=== PATIENT | female | born 2000 | race Caucasian/White ===

== ENCOUNTER 2024-10-21 08:28 | Outpatient (OUT) | payer OTHER, SELFPAY ==
--- OUTSIDE RECORDS SUMMARY | 2024-10-16 08:00 | XMS_ITS | Encounter Summary ---
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 Monthly or less 04/22/2023 Q2: How many drinks containi ng alcohol do you have on a typical day when you are drinking? 1 or 2 04/22/2023 Q3: How often do you have si x or more drinks on one occasion? Never 04/22/2023 Estimated Date of Delivery Comme nts Yes 05/10/2025 Based on last me nstrual period of 08/03/2024 Sex and Gender Information Value Date Recorded Sex Assigned at Not on file Legal Sex Female 7:09 PM EDT Gender Identity Not on file Sexual Orientation Not on file documented as of this encounter Plan of Treatment Upcoming Encounters Date Type Department Care Team (Late st Contact Info) Description 10/27/2024 11:45 AM EDT Initial [facility] [address] [place] [address] Timothy Fair MD [address] [place] [address] 11/03/2024 10:30 AM EDT Office Visit [facility] [address] [place] [address] Timothy Fair MD [address] [place] [address] 03/16/2025 1:00 PM EDT Office Visit [facility] [address] [place] [address] Timothy Fair MD [address] [place] [address] Pending Results Name Type Priority Associated Diagnoses Date /Time OB transvaginal Imaging Routine 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
--- OUTSIDE RECORDS SUMMARY | 2024-10-21 08:40 | XMS_ITS | Encounter Summary ---
Author Organization [facility] Address [address] [place] [address] Phone Care Team Providers Care Managing Supervisor Name Role Phone Mayuri Coronel MD Primary Care Provider Encounter Details Date Type Department Care Team (Late st Contact Info) Description 06/21/2020 Orders Only [facility] [address] [place] [address] Conversion, Onbase Social History Tobacco Use Types Packs/Day Years Used Date Smoking Tobacco: Never Assessed Comments Unknown Sex and Gender Information Value Date Recorded Sex Assigned at Not on file Legal Sex Female 3:19 PM EST Gender Identity Not on file Sexual Orientation Not on file documented as of this encounter Plan of Treatment Scheduled Orders Name Type Priority Associated Diagnoses Orde r Schedule OUTSIDE LAB SCAN Lab Ordered: 06/21/2020 documented as of this encounter Visit Diagnoses Not on filedocumented in this encounter Care Teams Managing Supervisor Relationship Specialty Start Date End Date Mayuri Coronel MD [address] [place] [address] PCP - General 08/07/18 documented as of this encounter
--- OUTSIDE RECORDS SUMMARY | 2024-10-21 08:40 | XMS_ITS | Encounter Summary ---
Author Organization [facility] Address [address] [place] [address] Care Team Providers Care Airplane Woodworker Name Role Phone Mayuri Coronel MD Primary Care Provider [phone] Encounter Details Date Type Department Care Team (Latest Contact Info) Description 10/16/2024 Travel Social History Tobacco Use Types Packs/Day Years [...] EDT Initial [facility] [address] [place] [address] Timothy Fair MD [address] [place] [address] 11/03/2024 10:30 AM EDT Office Visit [facility] [address] [place] [address] Timothy Fair MD [address] [place] [address] 03/16/2025 1:00 PM EDT Office Visit [facility] [address] [place] [address] Timothy Fair MD [address] [facility] [address] [place] [address] documented as of this encounter Goals Goal Patient Goal Type Associated Problems Recent Progress Patient-Stated? Author Reminders Care Plan OB Reminders No Peyton Naranjo MA documented as of this encounter Visit Diagnoses Not on filedocumented in this encounter Additional Health Concerns Active Problems Noted Date Diagnosed Date OB Reminders 09/08/2024 documented as of this encounter Care Teams Airplane Woodworker Relationship Specialty Start Date End Date Mayuri Coronel MD [address] [facility] [place] [address] PCP - General Family Medicine 02/26/23 documented as of this encounter
--- OUTSIDE RECORDS SUMMARY | 2024-10-21 08:40 | XMS_ITS | Encounter Summary ---
Author Organization [facility] Address [address] [place] [address] Care Team Providers Care Editorial Specialist Name Role Phone Mayuri Coronel MD Primary Care Provider [phone] Encounter Details Date Type Department Care Team (Late st Contact Info) Description 02/26/2023 Abstract [facility] [address] [facility] [address] [place] [address] Timothy Fair MD [address] [facility] [address] [place] [address] Social History Tobacco Use Types Packs/Day Years Used Date Smoking Tobacco: Never Smokeless Tobacco: Never Tobacco Cessation:Counseling Given: Not Answered Alcohol Use Standard Drinks/Week Comments Yes 2 (1 standard drink = 0.6 oz pur e alcohol) caffeine 1-2 cups/day; tea Comments No Sex and Gender Information Value Date Recorded Sex Assigned at Not on file Legal Sex Female 7:09 PM EDT Gender Identity Not on file Sexual Orientation Not on file documented as of this encounter Plan of Treatment Upcoming Encounters Date Type Department Care Team (Late st Contact Info) Description 10/27/2024 11:45 AM EDT Initial [facility] [address] [facility] [address] [place] [address] Timothy Fair MD [address] [facility] [address] [place] [address] 11/03/2024 10:30 AM EDT Office Visit [facility] [address] [place] [address] Timothy Fair MD [address] [facility] [address] [place] [address] 03/16/2025 1:00 PM EDT Office Visit [facility] [address] [facility] [address] [place] [address] Timothy Fair MD [address] [facility] [address] [place] [address] documented as of this encounter Visit Diagnoses Not on filedocumented in this encounter Care Teams Editorial Specialist Relationship Specialty Start Date End Date Mayuri Coronel MD [address] [facility] [place] [address] PCP - General Family Medicine 02/26/23 documented as of this encounter
--- OUTSIDE RECORDS SUMMARY | 2024-10-21 08:40 | XMS_ITS | Encounter Summary ---
Author Organization [facility] Address [address] [place] [address] Care Team Providers Care Financial Reporting Accountant Name Role Phone Mayuri Coronel MD Primary Care Provider [phone] Encounter Details Date Type Department Care Team (Late st Contact Info) Description 10/16/2024 Telephone [facility] [address] [place] [address] Michelle Zimmerman MA [address] [place] [address] Social History Tobacco Use Types Packs/Day Years [...] on file documented as of this encounter Miscellaneous Notes * Telephone Encounter - Michelle Zimmerman MA - 10/16/2024 4:09 PM EDT Per [facility] schedule suction D&C for missed at [facility] if available, if not [facility]. And send order for Rhogam to [facility]. Called [facility], scheduled surgery for 10/21/24 @ 7 a.m. Rhogam orders faxed. Called and spoke with the patient, advised her of surgery date and time, be there this day at 6:15 a.m., nothing to eat or drink after midnight the night before surgery, she will need a driver/guide available once release from [facility], and no aspirin 7 days prior to surgery. Patient was also advised he she will need a 2 week PO appointment. Scheduled for 11/03/24 @ 10:30 a.m. Precert sent. documented in this encounter Plan of Treatment Upcoming Encounters Date Type Department Care Team (Late st Contact Info) Description 10/27/2024 11:45 AM EDT Initial [facility] [address] [place] [address] Timothy Fair MD [address] [place] [address] 11/03/2024 10:30 AM EDT Office Visit [facility] [address] [place] [address] Timothy Fair MD [address] [place] [address] 03/16/2025 1:00 PM EDT Office Visit [facility] [address] [place] [address] Timothy Fair MD [address] [place] [address] Scheduled Orders Name Type Priority Associated Diagnoses Orde r Schedule RHOGAM WORKUP ([facility]) Lab Routine Rh negative status during in first trimester Encounter for blood typing Blood typing encounter Expected: 10/16/2024 (Approximate), Expires: 10/16/2025 documented as of this encounter Goals Goal Patient Goal Type Associated Problems Recent Progress Patient-Stated? Author Reminders Care Plan OB Reminders Peyton Luciano MA documented as of this encounter Visit Diagnoses Diagnosis Rh negative status during in first trimester Encounter for blood typing Blood typing encounter Encounter for blood typing documented in this encounter Additional Health Concerns Active Problems Noted Date Diagnosed Date OB Reminders 09/08/2024 documented as of this encounter Care Teams Financial Reporting Accountant Relationship Specialty Start Date End Date Mayuri Coronel MD [address] [place] [address] PCP - General Family Medicine 02/26/23 documented as of this encounter
--- OUTSIDE RECORDS SUMMARY | 2024-10-21 08:40 | XMS_ITS | Encounter Summary ---
Author Organization [facility] Address [address] [place] [address] Care Team Providers Care Plaster Model And Mold Maker Name Role Phone Mayuri Coronel MD Primary Care Provider [phone] Reason for Visit * Reason Comments Med Refill Encounter Details Date Type Department Care Team (Late st Contact Info) Description 03/09/2023 Refill [facility] [address] [place] [address] Timothy Fair MD [address] [facility] [address] [place] [address] Oral contraceptive pill surveillance Social History Tobacco Use Types Packs/Day Years Used Date Smoking Tobacco: Never Smokeless Tobacco: Never Alcohol Use Standard Drinks/Week Comments Yes 2 (1 standard drink = 0.6 oz pur e alcohol) Comments No Sex and Gender Information Value [...] OB [address] [place] [address] Timothy Fair MD [address] [facility] [address] [place] [address] 11/03/2024 10:30 AM EDT Office Visit [facility] [address] [place] [phone] Timothy Fair MD [address] [facility] [address] [place] [address] 03/16/2025 1:00 PM EDT Office Visit [facility] [address] [facility] [address] [place] [address] Timothy Fair MD [address] [facility] [address] [place] [address] documented as of this encounter Visit Diagnoses Diagnosis Oral contraceptive pill surveillance documented in this encounter Care Teams Plaster Model And Mold Maker Relationship Specialty Start Date End Date Mayuri Coronel MD [address] [facility] [place] [address] PCP - General Family Medicine 02/26/23 documented as of this encounter
--- OUTSIDE RECORDS SUMMARY | 2024-10-21 08:40 | XMS_ITS | Clinical Summary ---
Author Organization [facility] Address [address] [place] [address] Phone Care Team Providers Care Fuel Retrofitting Technician Name Role Phone Mayuri Coronel MD Primary Care Provider [phone] Social History Tobacco Use Types Packs/Day Years Used Date Smoking Tobacco: Never Assessed Comments Unknown Sex and Gender Information Value Date Recorded Sex Assigned at Not on file Legal Sex Female 3:19 PM EST Gender Identity Not on file Sexual Orientation Not on file Last Filed Vital Signs Vital Sign Reading Time Taken Comments Blood Pressure 141/87 06/20/2020 6:59 PM EST Pulse 103 06/20/2020 7:24 PM EST Temperature 37.1 C (98.7 F) 06/20/2020 6:59 PM EST Respiratory Rate 16 06/20/2020 6:59 PM EST Oxygen Saturation 97% 06/20/2020 6:59 PM EST Inhaled Oxygen Concentration - - Weight 71.2 kg (157 lb) 06/20/2020 6:59 PM EST Height 167.6 cm (5' 6 ) 06/20/2020 6:59 PM EST Body Mass Index 25.34 06/20/2020 6:59 PM EST Plan of Treatment Not on file Care Teams Fuel Retrofitting Technician Relationship Specialty Start Date End Date Mayuri Coronel MD [address] [place] [address] PCP - General 08/07/18
--- OUTSIDE RECORDS SUMMARY | 2024-10-21 08:41 | XMS_ITS | Clinical Summary ---
Author Organization [facility] Address [address] [place] [address] Care Team Providers Care Staffing Executive Name Role Phone Mayuri Coronel MD Primary Care Provider [phone] Allergies Active Allergy Reactions Criticality Noted Date Comments Cephalexin Shortness of breath,Hives,Itching,Other,Rash, Swelling High 05/01/2022 Montelukast Other 04/23/2023 depressed Sulfa Antibiotics Other,Hives,Rash Low 06/29/2014 Medications EPINEPHrine (Epipen) 0.3 MG/0.3ML injection syringeIndications :Mild intermittent asthma without complication (CMS/HCC),Seasonal allergic rhinitis due to pollen Inject 0.3 mL (0.3 mg) as directed if needed for anaphylaxis. Call 911 after use. 4 each 1 3 Active albuterol HFA (Ventolin HFA) 90 mcg/act inhalerIndications :Asthma, allergic, mild intermittent, uncomplicated (CMS/HCC) Inhale 2 puffs every 4 (four) hours if needed for wheezing 18 g 11 4 Active Vit-Fe Fumarate-FA ( PO) Take by mouth Active rho,D, immune globulin (RhoGAM Ultra-Filtered Plus) 1500 units injectionIndicatio ns:Rh negative status during in first trimester,Encounte r for blood typing,Blood typing encounter Inject 1 mL (1,500 Units) into the shoulder, thigh, or buttocks 1 (one) time for 1 dose 300mcg as directed per rhogam workup 1 mL 5 10/17/19 25 Active Problems Problem Noted Date Diagnosed Date Acute allergic rhinitis due to pollen 04/30/2023 Mild intermittent asthma without complication Estimated Date of Delivery Comme nts Yes 05/10/2025 Based on last me nstrual period of 08/03/2024 Encounters Date Type Department Care Team Description 10/16/2024 8:00 AM EDT Ancillary Procedure [facility] [address] [place] [address] Inappropriate change in quantitative hCG in early ; Threatened miscarriage in early 10/16/2024 Telephone [facility] [address] [place] [phone] Michelle Zimmerman MA 10/16/2024 Travel 09/30/2024 10:00 AM EDT Office Visit [facility] [address] [place] [address] Timothy Fair MD Encounter for supervision of normal first in first trimester (Primary Dx); Less than 8 weeks gestation of 09/30/2024 9:00 AM EDT Ancillary Procedure [facility] [address] [place] [address] Size of fetus inconsistent with dates in first trimester; Pelvic pain in , antepartum, first trimester 09/30/2024 Travel 09/29/2024 Clinisync Result Encounter [facility] External Department Unsolicited Timothy Fair MD 09/25/2024 8:00 AM EDT Ancillary Procedure [facility] [address] [place] [address] Pelvic pain in , antepartum, first trimester 09/25/2024 Results Follow-Up [facility] [address] [place] [address] [address] Timothy Fair MD 09/25/2024 Clinisync Result Encounter [facility] Department Unsolicited Timothy Fair MD 09/25/2024 Telephone [facility] [address] [place] [address] Sandee Bee RN 09/25/2024 Telephone [facility] [address] [place] [phone] Sandee Bee RN Error (VOID this visit) 09/25/2024 Travel 09/08/2024 9:30 AM EDT Initial [facility] [address] [place] [phone] GA: 5w1d 09/08/2024 Travel 09/01/2024 Telephone [facility] [address] [place] [phone] Timothy Fair MD from Last 3 Months Family History Medical History Relation Name Comments Hypertension Father Cancer Maternal Grandfather Diabetes Maternal Grandmother Hypothyroidism Mother Bone cancer Paternal Grandfather Heart defect Paternal Grandfather muliple heart issues Cancer Paternal Grandmother No Known Problems Sister Relation Name Status Comments Father Maternal Grandfather Maternal Grandmother Mother Paternal Grandfather Paternal Grandmother Sister Social History Tobacco Use Types Packs/Day Years Used Date Smoking Tobacco: Never Smokeless Tobacco: Never Tobacco Cessation:Counseling Given: Not Answered Alcohol Use Standard Drinks/Week Comments Not Currently [...] Sign Reading Time Taken Comments Blood Pressure 120/78 03/10/2024 1:04 PM EDT Pulse - - Temperature - - Respiratory Rate - - Oxygen Saturation - - Inhaled Oxygen Concentration - - Weight 94.8 kg (209 lb) 03/10/2024 1:04 PM EDT Height 167.6 cm (5' 6 ) 08/21/2022 12:00 PM EDT Body Mass Index 33.73 08/21/2022 12:00 PM EDT Plan of Treatment Upcoming Encounters Date Type Department Care Team (Late st Contact Info) Description 10/27/2024 11:45 AM EDT Initial [facility] [address] [place] [phone] Timothy Fair MD [address] [place] [address] 11/03/2024 10:30 AM EDT Office Visit [facility] [address] [place] [phone] Timothy Fair MD [address] [place] [address] 03/16/2025 1:00 PM EDT Office Visit [facility] [address] [place] [phone] Timothy Fair MD [address] [place] [address] Health Maintenance Due Date Last Done Comments Influenza Vaccine (Season Ended) 2025 03/08/2019, 04/09/2018, 04/09/2018, Additional history exists Goals Goal Patient Goal Type Associated Problems Recent Progress Patient-Stated? Author Reminders Care Plan OB Reminders No Peyton Naranjo MA Procedures Procedure Name Priority Date/Time Associated Diagnosis Comments US OB LIMITED 1+ FETUSES Routine 09/30/2024 11:21 AM EDT Size of fetus inconsistent with dates in first trimester Pelvic pain in , antepartum, first trimester [facility] BHCG QUANT Routine 09/29/2024 10:25 AM EDT HCG, TOTAL, QN Routine 09/25/2024 1:21 PM EDT examination or test, positive result HCG, TOTAL, QN Routine 09/25/2024 1:21 PM EDT examination or test, positive result [facility] BHCG QUANT Routine 09/25/2024 11:29 AM EDT US OB TRANSVAGINAL Routine 09/25/2024 9: 08 AM EDT Pelvic pain in , antepartum, first trimester URINE CULTURE CLEAN CATCH REFLEX Routine 09/08/2024 10:22 AM EDT HIV-1/HIV-2 QUAL RNA REFLEX Routine 09/08/2024 10:22 AM EDT UR MICROSCOPIC REFLEX Routine 09/08/2024 10:22 AM EDT DRUG SCREEN 17 W/CONF, UR Routine 09/08/2024 10:22 AM EDT Encounter for drug screening HEPATITIS C ANTIBODY Routine 09/08/2024 10:22 AM EDT Encounter for supervision of normal first in first trimester CBC (INCLUDES DIFF/PLT) Routine 09/08/2024 10:22 AM EDT Encounter for supervision of normal first in first trimester HIV-1 AND HIV-2 ANTIBODIES Routine 09/08/2024 10:22 AM EDT Encounter for supervision of normal first in first trimester BLOOD TYPE AND SCREEN GEL Routine 09/08/2024 10:22 AM EDT Encounter for supervision of normal first in first trimester HEPATITIS B SURFACE ANTIGEN W/REFL CONFIRM Routine 09/08/2024 10:22 AM EDT Encounter for supervision of normal first in first trimester RUBELLA AB (IGG), IMMUNE STATUS Routine 09/08/2024 10:22 AM EDT Encounter for supervision of normal first in first trimester RPR (DX) W/REFL TITER AND CONFIRMATORY TESTING Routine 09/08/2024 10:22 AM EDT Encounter for supervision of normal first in first trimester URINALYSIS, COMPLETE Routine 09/08/2024 10:22 AM EDT Encounter for supervision of normal first in first trimester CULTURE, URINE, ROUTINE Routine 09/08/2024 10:22 AM EDT Encounter for supervision of normal first in first trimester from Last 3 Months Results * US OB limited 1+ fetuses (09/30/2024 11:21 AM EDT) Anatomical Region Laterality Modality Body Ultrasound Study GA Study Date Study SHELLEY Working SHELLEY (Source) 09/30/2024 05/10/2025 (Last Menstrua l Period) Fetus A Measurements Value GA (days) CRL Sac Diameter Biparietal Diameter Head Circumference Abdominal Circumference Femur Length Ulna Length Humerus Length Tibia Length Amniotic Fluid Index Quadrant 1 Amniotic Fluid Index Quadrant 2 Amniotic Fluid Index Quadrant 3 Amniotic Fluid Index Quadrant 4 Amniotic Fluid Index Deep Vertical Pocket UA SD Ratio UA Resistance Index UA Pulsatility Index MCA SD Ratio MCA Resistance Index MCA Pulsatility Index Heart Rate Narrative 10/02/2024 9:57 AM EDT See report us Timothy Fair MD IMG OB US PROCEDURES Final Res ult * (ABNORMAL) [facility] BHCG QUANT (09/29/2024 10:25 AM EDT) Only the most recent of2 resultswithin the time period is included. [facility] CHORIOGONADOTROP IN.BETA SUBUNIT:ACNC:PT: SER/PLAS:QN: 80,230(H) 1 - 3 mIU/mL [facility] Comment: 'F NON < 1 - 3' ' 0.2 - 1 WEEK = 5 TO 50' ' 1 - 2 WEEKS = 50 - 500' ' 2 - 3 WEEKS = 100 - 5000' ' 3 - 4 WEEKS = 500 - 09143' ' 4 - 5 WEEKS = 1000 - 45460' ' 5 - 6 WEEKS = 73284 - 778248' ' 6 - 8 WEEKS = 82613 - 005261' ' 8 - 12 WEEKS = 63847 - 884113' Blood 09/29/2024 10:2 5 AM EDT 09/29/2024 11:31 AM EDT Narrative [facility] - 09/29/2024 12:25 PM EDT Original Ordering Provider: MD Timothy Fair Timothy Fair MD CLINIS[facility]NC Final Result Performing Organization Address [facility] de Phone Number [facility]IS[facility] * hCG, quantitative, (09/25/2024 1:21 PM EDT) Only the most recent of2 resultswithin the time period is included. Blood Venous blood specimen / Unknown us Timothy Fair MD LAB BLOOD ORDERABLES Final Res ult Performing Organization Address [facility] de Phone Number EXTERNAL LAB * US OB transvaginal (09/25/2024 9:08 AM EDT) Anatomical Region Laterality Modality Body Ultrasound Study GA Study Date Study SHELLEY Working SHELLEY (Source) 09/25/2024 05/10/2025 (Last Menstrua l Period) Fetus A Measurements Value GA (days) CRL Sac Diameter Biparietal Diameter Head Circumference Abdominal Circumference Femur Length Ulna Length Humerus Length Tibia Length Heart Rate YOLK SAC MEASUREMENT CERVICAL W/FUNDAL PRESSURE CERVICAL W/ VALSALVA Narrative 09/25/2024 11:16 AM EDT See report us Timothy Fair MD IMG OB US PROCEDURES Final Res ult * DRUG SCREEN 17 W/CONF, UR (09/08/2024 10:22 AM EDT) CREATININE 165 mg/dL [facility] Comment:REFERENCE RANGE: Ref Range>=20 ETHANOL BIOMARKERS IA Negative CUTOFF:5 00 ng/mL [facility] AMPHETAMINES IA Negative CUTOFF:3 00 ng/mL [facility] BARBITURATES IA Negative CUTOFF:2 00 ng/mL [facility] BENZODIAZEPINES IA Negative CUTOFF:5 0 ng/mL [facility] COCAINE METABOLITE IA Negative CUTOFF:1 50 ng/mL [facility] PHENCYCLIDINE IA Negative CUTOFF:2 5 ng/mL [facility] CANNABINOIDS IA Negative CUTOFF:2 0 ng/mL [facility] 6-ACETYLMORPHINE IA Negative CUTOFF:1 0 ng/mL [facility] OPIATE CLASS IA Negative CUTOFF:1 00 ng/mL [facility] OXYCODONE CLASS IA Negative CUTOFF:1 00 ng/mL [facility] METHADONE IA Negative CUTOFF:1 00 ng/mL [facility] FENTANYL IA Negative CUTOFF:2 .0 ng/mL [facility] BUPRENORPHINE IA Negative CUTOFF:5 .0 ng/mL [facility] TRAMADOL IA Negative CUTOFF:2 00 ng/mL [facility] PROPOXYPHENE IA Negative CUTOFF:3 00 ng/mL [facility] TAPENTADOL IA Negative CUTOFF:2 00 ng/mL [facility] NICOTINE METABOLITE Negative [facility] COTININE Not Detected ng/mL [facility] 09/08/2024 10:2 2 AM EDT 09/08/2024 Narrative [facility] - 09/11/2024 1:07 PM EDT Performed at: 01 - [facility] [address] [place] [id number] Assisted Living Associate: Eliane Portillo [facility], Phone: [phone] Timothy Fair MD LAB BLOOD ORDERABLES Final Res ult Performing Organization Address City/[facility] de Phone Number [facility] * Urine Culture Clean Catch Reflex (09/08/2024 10:22 AM EDT) Ur Cult 1 No growth [facility] 09/08/2024 10:2 2 AM EDT 09/08/2024 Narrative [facility] - 09/11/2024 1:07 PM EDT Performed at: [address] [id number] Assisted Living Associate: Sumit Reeves PhD, Phone: [phone] us Timothy Fair MD LAB URINE ORDERABLES Final Res ult Performing Organization Address City/[facility] Co de Phone Number [facility] * (ABNORMAL) Ur Microscopic Reflex (09/08/2024 10:22 AM EDT) WBC Ur 0-5 0 - 5 /hpf [facility] RBC Ur 3-10(A) 0 - 2 /hpf [facility] Epithelial Cells (non renal) Ur >10(A) 0 - 10 /hpf [facility] Bacteria Ur Few None seen/Few [facility] 09/08/2024 10:2 2 AM EDT 09/08/2024 Narrative [facility] - 09/11/2024 1:07 PM EDT Performed at: - [place] [address] [address] [facility], [address], [place], [place] [id number] Assisted Living Associate: Marcelino Crespo MD, Phone: [phone] us Timothy Fair MD LAB URINE ORDERABLES Final Res ult [facility] * HIV-1/HIV-2 Qual RNA Reflex (09/08/2024 10:22 AM EDT) HIV-1 RNA Non Reactive Non Reactive [facility] HIV-2 RNA Non Reactive Non Reactive [facility] Final Interpretation HIV Negative [facility] Comment: HIV antibodies were NOT confirmed and HIV-1 and HIV-2 RNA was NOT detected. No laboratory evidence of HIV Infection. Possible biologic false positive. This HIV order code IS NOT the full HIV screening and diagnosis panel. This panel should only be used by clients performing the initial HIV screening test and submitting positive samples to [facility] for completion of the HIV testing algorithm. For the full HIV screening and diagnosis testing algorithm, use order code [id number]. 09/08/2024 10:2 2 AM EDT 09/08/2024 Narrative [facility] - 09/11/2024 1:07 PM EDT Performed at: [address] [id number] Assisted Living Associate: Zeina Loera MD, Phone: [phone] Performed at: [facility] [id number] Assisted Living Associate: Sumit Reeves PhD, Phone: [phone] Timothy Fair MD LAB BLOOD ORDERABLES Final Res ult Performing Organization Address [facility] de Phone Number [facility] * Hepatitis C antibody (09/08/2024 10:22 AM EDT) Pathologist [facility] Hep C Virus Ab Non Reactive Non Reactive [facility] Comment: HCV antibody alone does not differentiate between previously resolved infection and active infection. Equivocal and Reactive HCV antibody results should be followed up with an HCV RNA test to support the diagnosis of active HCV infection. Blood Venous blood specimen / Unknown 09/08/2024 10:22 AM EDT 09/08/2024 Narrative [facility] - 09/11/2024 1:07 PM EDT Performed at: [address] [place] [id number] Assisted Living Associate: Sumit Reeves PhD, Phone: [phone] Timothy Fair MD LAB BLOOD ORDERABLES Final Res ult Performing Organization Address [facility] de Phone Number [facility] * Rubella antibody, IgG (09/08/2024 10:22 AM EDT) Pathologist [facility] Rubella IgG Abs 1.87 Immune >0.99 index [facility] Comment: Non-immune <0.90 Equivocal 0.90 - 0.99 Immune >0.99 Blood Venous blood specimen / Unknown 09/08/2024 10:22 AM EDT 09/08/2024 Narrative [facility] - 09/11/2024 1:07 PM EDT Performed at: 03 - [address] [id number] Assisted Living Associate: Sumit Reeves PhD, Phone: [phone] Timothy Fair MD LAB BLOOD ORDERABLES Final Res ult Performing Organization Address [facility] Co de Phone Number [facility] * RPR (09/08/2024 10:22 AM EDT) [facility] RPR Non Reactive Non Reactive [facility] Blood Venous blood specimen / Unknown 09/08/2024 10:22 AM EDT 09/08/2024 Narrative [facility] - 09/11/2024 1:07 PM EDT Performed at: [address] [place] [id number] Assisted Living Associate: Sumit Reeves PhD, Phone: [phone] Timothy Fair MD LAB BLOOD ORDERABLES Final Res ult [facility] * HIV-1 and HIV-2 antibodies (09/08/2024 10:22 AM EDT) [facility] HIV-1 Ab Non Reactive Non Reactive [facility] HIV-2 Ab Non Reactive Non Reactive [facility] HIV 1/2 Interp Negative [facility] Comment:See RNA Reflex. Blood Venous blood specimen / Unknown 09/08/2024 10:22 AM EDT 09/08/2024 Narrative [facility] - 09/11/2024 1:07 PM EDT Performed at: [address] [place] [id number] Assisted Living Associate: Sumit Reeves PhD, Phone: [phone] Timothy Fair MD LAB BLOOD ORDERABLES Final Res ult Performing Organization Address City/[facility]/ZIP Co de Phone Number [facility] * Hepatitis B surface antigen (09/08/2024 10:22 AM EDT) [facility] Hep B Surf Ag Scr Confirm. indicated Negative [facility] Blood Venous blood specimen / Unknown 09/08/2024 10:22 AM EDT 09/08/2024 Narrative [facility] - 09/11/2024 1:07 PM EDT Performed at: [address] [place] [id number] Assisted Living Associate: Sumit Reeves PhD, Phone: [phone] Timothy Fair MD LAB BLOOD ORDERABLES Final Res ult Performing Organization Address [facility] de Phone Number [facility] * (ABNORMAL) Urinalysis with microscopic (09/08/2024 10:22 AM EDT) Specific Wister Urine 1.020 1.005 - 1.030 [facility] pH Urine 7.0 5.0 - 7.5 [facility] Color Urine Yellow Yellow [facility] Appearance Urine Clear Clear [facility] WBC Esterase Urine 1+(A) Negative [facility] Protein Urine Negative Negative/Tra ce [facility] Glucose Urine Negative Negative [facility] Ketones Urine Negative Negative [facility] Occult Blood Urine 1+(A) Negative [facility] Bilirubin Urine Negative Negative [facility] Urobilinogen,Se mi-Qn Urine 0.2 0.2 - 1.0 mg/dL [facility] Nitrite Urine Negative Negative [facility] Ur Microscopic See below: [facility] Urine Urine specimen obtained by clean catch procedure / Unknown 09/08/2024 10:22 AM EDT 09/08/2024 Narrative [facility] - 09/11/2024 1:07 PM EDT Performed at: 02 - [facility] [place] [facility] [address], [place], [place] [id number] Assisted Living Associate: Marcelino Crespo MD, Phone: [phone] Timothy aFir MD LAB URINE ORDERABLES Final Res ult Performing Organization Address [facility] de Phone Number [facility] * (ABNORMAL) CBC and differential (09/08/2024 10:22 AM EDT) WBC 8.7 3.4 - 10.8 x10E3/uL [facility] RBC 4.68 3.77 - 5.28 x10E6/uL [facility] Hgb 13.9 11.1 - 15.9 g/dL [facility] Hct 42.5 34.0 - 46.6 % [facility] MCV 91 79 - 97 fL [facility] MCH 29.7 26.6 - 33.0 pg [facility] MCHC 32.7 31.5 - 35.7 g/dL [facility] RDW 13.4 11.7 - 15.4 % [facility] Platelets 298 150 - 450 x10E3/uL [facility] Neutrophils 70 Not Estab. % [facility] Lymphs 20 Not Estab. % [facility] Monocytes 4 Not Estab. % [facility] Eos 5 Not Estab. % [facility] Basos 1 Not Estab. % [facility] Neutrophils Abs 6.1 1.4 - 7.0 x10E3/uL [facility] Lymphs Abs 1.7 0.7 - 3.1 x10E3/uL [facility] MonocytesAbs 0.4 0.1 - 0.9 x10E3/uL [facility] Eos Abs 0.5(H) 0.0 - 0.4 x10E3/uL [facility] Baso Abs 0.1 0.0 - 0.2 x10E3/uL [facility] Immature Granulocytes 0 Not Estab. % [facility] Immature Grans Abs 0.0 0.0 - 0.1 x10E3/uL [facility] Blood Venous blood specimen / Unknown 09/08/2024 10:22 AM EDT 09/08/2024 Narrative [facility] - 09/11/2024 1:07 PM EDT Performed at: [place] [address], [place], [place] [id number] Assisted Living Associate: Marcelino Crespo MD, Phone: [phone] us Timothy Fair MD LAB BLOOD ORDERABLES Final Res ult [facility] * Type and screen (09/08/2024 10:22 AM EDT) ABO Grouping A [facility] Rh Factor Negative [facility] Comment: Please note: Prior records for this patient's ABO / Rh type are not available for additional verification. Antibody Screen Negative Negative [facility] Blood Venous blood specimen / Unknown 09/08/2024 10:22 AM EDT 09/08/2024 Narrative [facility] - 09/11/2024 1:07 PM EDT Performed at: 03 - [facility] [address] [id number] Assisted Living Associate: Sumit Reeves PhD, Phone: [phone] Timothy Fair MD LAB BLOOD ORDERABLES Final Res ult Performing Organization Address City/[facility]/ZIP Co de Phone Number [facility] * Urine culture (09/08/2024 10:22 AM EDT) Urine Cult Rt Status Final report [facility] Urine Urine specimen obtained by clean catch procedure / Unknown 09/08/2024 10:22 AM EDT 09/08/2024 Comment:ROLANDO Narrative [facility] - 09/11/2024 1:07 PM EDT Performed at: 03 - [facility] [address] [id number] Assisted Living Associate: Sumit Reeves PhD, Phone: [phone] Timothy Fair MD LAB MICROBIOLOGY - GENERAL ORD ERABLES Final Result Performing Organization Address City/[facility]/ZIP Co de Phone Number [facility] from Last 3 Months Additional Health Concerns Active Problems Noted Date Diagnosed Date OB Reminders 09/08/2024 Insurance [facility] Care Teams Staffing Executive Relationship Specialty Start Date End Date Mayuri Coronel MD [address] [place] [address] PCP - General Family Medicine 02/26/23
== END 2024-10-21 08:29 | disposition home or self-care (01) ==
PROVIDERS: Visit Provider Obstetrics & Gynecology
DX: Z01.83 Encounter for blood typing (principal); O26.891 Other specified pregnancy related conditions, first trimester; Z67.91 Unspecified blood type, Rh negative
CPT/HCPCS: 36415; 86850; 86900; 86901